=== PATIENT | male | born 1945 | race Caucasian/White ===

== ENCOUNTER 2017-04-19 16:44 | Emergency (ER) | payer MEDICARE, MEDICAID ==
--- NOTE | 2017-04-19 17:25 | ER Document Report ---
ED Medical Screen (RME) - General Chief Complaint: Decreased Appetite Stated Complaint: BLOOD SUGAR ISSUES Time Seen by Provider: 04/19/17 17:22 Mode of Arrival: Ambulatory Information source: Patient TRAVEL OUTSIDE OF THE [place] IN LAST 30 DAYS: No - HPI Patient complains to provider of: depression, elevated FSBS Onset: Other - pt states his blood sugars have been elevated recently but the main reason he's here is that he is very depressed. Feels as if he could hurt himself - Related Data Allergies/Adverse Reactions: No Known Allergies Allergy (Verified 07/19/15 09:40) Past Medical History - Past Medical History Cardiac Medical History: Reports: Hx Hypertension Denies: Hx Heart Attack Pulmonary Medical History: Denies: Hx Asthma Neurological Medical History: Denies: Hx Cerebrovascular Accident, Hx Seizures GI Medical History: Denies: Hx Hepatitis, Hx Hiatal Hernia, Hx Ulcer Infectious Medical History: Denies: Hx Hepatitis Past Surgical History: Denies: Hx Open Heart Surgery, Hx Pacemaker Physical Exam - Vital signs Vitals: Temp Pulse BP Pulse Ox 98.3 F 109 H 143/87 H 95 04/19/17 17:16 04/19/17 17:16 04/19/17 17:16 04/19/17 17:16 Course - Vital Signs Vital signs: Temp Pulse Resp BP Pulse Ox 98.3 F 109 H 143/87 H 95 04/19/17 17:16 04/19/17 17:16 04/19/17 17:16 04/19/17 17:16
[2017-04-19 18:00] LABS: APPEARANCE,URINE CLEAR; BILIRUBIN,URINE NEGATIVE (NEGATIVE); GLUCOSE, URINE NEGATIVE (NEGATIVE); KETONES,URINE TRACE mg/dL (NEGATIVE); LEUKOCYTE ESTERASE,URINE NEGATIVE (NEGATIVE); NITRITE,URINE NEGATIVE (NEGATIVE); PROTEIN,URINE NEGATIVE (NEGATIVE)
[2017-04-19 18:02] LABS: ABSOLUTE EOSINOPHILS # (AUTO) 0.2 10^3/uL (0.0-0.6); ABSOLUTE LYMPHOCYTES (AUTO) 3.3 10^3/uL (0.5-4.7); ABSOLUTE MONOCYTES (AUTO) 0.7 10^3/uL (0.1-1.4); ABSOLUTE NEUT (AUTO) 5.3 10^3/uL (1.7-8.2); BASOPHILS % (AUTO) 0.3 % (0-2); EOSINOPHILS % (AUTO) 2.6 % (0-6); HEMATOCRIT 47.2 % (37.9-51.0); HEMOGLOBIN 16.3 g/dL (13.5-17.0); HGB HCT DIFFERENCE 1.7; LYMPHOCYTES % (AUTO) 34.3 % (13-45); MEAN CORPUSCULAR HEMOGLOBIN 30.1 pg (27.0-33.4); MEAN CORPUSCULAR HGB CONC 34.5 g/dL (32.0-36.0); MEAN CORPUSCULAR VOLUME 87 fl (80-97); MONOCYTES % (AUTO) 7.6 % (3-13); RED BLOOD COUNT 5.41 10^6/uL (4.35-5.55); RED CELL DISTRIBUTION WIDTH 14.7 % (11.5-14.0); SEGMENTED NEUTROPHILS % (AUTO) 55.2 % (42-78); WHITE BLOOD COUNT 9.7 10^3/uL (4.0-10.5)
[2017-04-19 18:04] LABS: WBC,URINE RARE /HPF
[2017-04-19 18:23] LABS: ALANINE AMINOTRANSFERASE 36 U/L (21-72); ALKALINE PHOSPHATASE 68 U/L (38-126); ANION GAP 14 (5-19); ASPARTATE AMINO TRANSFERASE 18 U/L (17-59); BILIRUBIN,DIRECT 0.4 mg/dL (0.0-0.4); BILIRUBIN,TOTAL 0.6 mg/dL (0.2-1.3); BLOOD UREA NITROGEN 20 mg/dL (7-20); CALCIUM 10.5 mg/dL (8.4-10.2); CARBON DIOXIDE 23 mmol/L (22-30); CHLORIDE 103 mmol/L (98-107); CREATININE RESULT 1.04 mg/dL (0.52-1.25); GLUCOSE 112 mg/dL (75-110); POTASSIUM 4.6 mmol/L (3.6-5.0); SODIUM 139.8 mmol/L (137-145); TOTAL PROTEIN 7.8 g/dL (6.3-8.2)
--- NOTE | 2017-04-19 18:24 | ER Document Report ---
ED General - General Chief Complaint: Decreased Appetite Stated Complaint: BLOOD SUGAR ISSUES Time Seen by Provider: 04/19/17 17:22 Mode of Arrival: Ambulatory Information source: Patient Notes: This is a 72-year-old man with a history of diabetes, hypertension, peripheral vascular disease who presents to the emergency room with weakness, irregular sugars, cold sweats and depression. During my interview, I received a phone call with a friend that works with him ( Ed Aries [phone]) who states he has been very depressed and he has expressed the desire to shoot himself. The patient does appear very depressed. He does have access to guns at home. TRAVEL OUTSIDE OF THE [place] IN LAST 30 DAYS: No - HPI Onset: Last week Onset/Duration: Gradual Quality of pain: No pain Severity: None Pain Level: Denies Associated symptoms: denies: Chest pain, Fever, Shortness of breath Exacerbated by: Denies Relieved by: Denies Similar symptoms previously: Yes Recently seen / treated by doctor: No - Related Data Allergies/Adverse Reactions: No Known Allergies Allergy (Verified 04/19/17 17:27) Past Medical History - General Information source: Patient - Social History Smoking Status: Current Some Day Smoker Cigarette use (# per day): Yes - Cigars Chew tobacco use (# tins/day): Yes Frequency of alcohol use: None Drug Abuse: None Lives with: Alone Family History: Other - Twin brother of dementia Patient has suicidal ideation: Yes Patient has homicidal ideation: No - Past Medical History Cardiac Medical History: Reports: Hx Hypertension Denies: Hx Heart Attack Pulmonary Medical History: Denies: Hx Asthma Neurological Medical History: Denies: Hx Cerebrovascular Accident, Hx Seizures Renal/ Medical History: Denies: Hx Peritoneal Dialysis GI Medical History: Denies: Hx Hepatitis, Hx Hiatal Hernia, Hx Ulcer Infectious Medical History: Denies: Hx Hepatitis Past Surgical History: Denies: Hx Open Heart Surgery, Hx Pacemaker Review of Systems - Review of Systems Constitutional: denies: Chills, Fever EENT: No symptoms reported Cardiovascular: No symptoms reported Respiratory: No symptoms reported Gastrointestinal: No symptoms reported Genitourinary: No symptoms reported Male Genitourinary: No symptoms reported Musculoskeletal: No symptoms reported Skin: No symptoms reported Hematologic/Lymphatic: No symptoms reported Neurological/Psychological: See HPI Physical Exam - Vital signs Vitals: Temp Pulse BP Pulse Ox 98.3 F 109 H 143/87 H 95 04/19/17 17:16 04/19/17 17:16 04/19/17 17:16 04/19/17 17:16 Notes: Physical exam: GENERAL: A 2-year-old man, alert and oriented 3, appears weak and depressed HEAD: Atraumatic, normocephalic. EYES: Pupils equal round and reactive to light, extraocular movements intact, sclera anicteric, conjunctiva are normal. ENT: TMs normal, nares patent, oropharynx clear without exudates. Moist mucous membranes. NECK: Normal range of motion, supple without obvious mass or JVD. LUNGS: Breath sounds clear to auscultation bilaterally and equal. No wheezes rales or rhonchi. HEART: Regular rate and rhythm without murmurs, rubs or gallops. ABDOMEN: Soft, normoactive bowel sounds. No tenderness to palpation. No guarding, no rebound. No masses appreciated. EXTREMITIES: Normal range of motion, no pitting or edema. No clubbing or cyanosis. 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 NEUROLOGICAL: Cranial nerves II through XII grossly intact. Normal speech, moving all extremities. PSYCH: Depressed SKIN: Warm, Dry, normal turgor, no rashes or lesions noted. Course - Vital Signs Vital signs: Temp Pulse Resp BP Pulse Ox 98.3 F 77 18 153/65 H 99 04/19/17 17:16 04/19/17 21:55 04/19/17 21:55 04/19/17 21:55 04/19/17 21:55 - Laboratory Result Diagrams: 04/19/17 17:35 04/19/17 17:35 Laboratory results interpreted by me: 04/19/17 04/19/17 04/19/17 17:35 17:35 17:35 RDW 14.7 H Glucose 112 H Calcium 10.5 H Urine Ketones TRACE H Urine Urobilinogen 2.0 H - Diagnostic Test Radiology reviewed: Image reviewed, Reports reviewed - Chest x-ray shows no infiltrates - EKG Interpretation by Me Rate: Normal Rhythm: NSR - EKG shows normal sinus rhythm with a ventricular rate of 81, no acute ST-T wave changes Discharge - Discharge Clinical Impression: Depression, Suicidal ideation Condition: Stable Disposition: PSYCH HOSP/UNIT Referrals: JAIME PITT MD [Primary Care Provider] - Follow up as needed
--- NOTE | 2017-04-19 20:47 | RADIOLOGY REPORT (SQ) ---
EXAM DESCRIPTION: CHEST PA/LAT COMPLETED DATE/TIME: 04/19/2017 8:36 pm REASON FOR STUDY: cough COMPARISON: None. EXAM PARAMETERS: NUMBER OF VIEWS: two views TECHNIQUE: Digital Frontal and Lateral radiographic views of the chest acquired. RADIATION DOSE: NA LIMITATIONS: none FINDINGS: LUNGS AND PLEURA: No consolidation, masses or pneumothorax. No pleural effusion. MEDIASTINUM AND HILAR STRUCTURES: No masses or contour abnormalities. HEART AND VASCULAR STRUCTURES: Heart normal size. No evidence for failure. BONES: No acute findings. HARDWARE: None in the chest. OTHER: No other significant finding. IMPRESSION: No acute findings. RECOMMENDATION: Choose TECHNICAL DOCUMENTATION: JOB ID: [id number] [place]-72 2010 [employer]- All Rights Reserved
--- NOTE | 2017-04-19 21:51 | EKG REPORT ---
SEVERITY:- NORMAL ECG - SINUS RHYTHM : Confirmed by: Prakash Rodriguez MD 19-Apr-2017 21:50:49
[2017-04-19] MEDS ORDERED: ZOLPIDEM TARTRATE 5 MG TABLET PO ONE (22:31)
[2017-04-19] MEDS ORDERED: TRAZODONE HCL 50 MG TABLET PO ONE (23:00)
[2017-04-19] MEDS ORDERED: TRAZODONE HCL 50 MG TABLET PO SCH (23:00)
[2017-04-20] MEDS ORDERED: LORAZEPAM 1 MG TABLET PO ONE (02:26)
[2017-04-20] MEDS ORDERED: LORAZEPAM 1 MG TABLET ONE (02:28)
[2017-04-20] MEDS: AMLODIPINE BESYLATE 2.5 MG TABLET PO SCH (09:31)
[2017-04-20] MEDS: CILOSTAZOL 100 MG TABLET PO SCH ×2 (09:31→17:37)
[2017-04-20] MEDS: CLOPIDOGREL BISULFATE 75 MG TABLET PO SCH (09:31)
--- NOTE | 2017-04-20 10:10 | ER Document Report ---
Doctor's Note Notes: 04/20/17 10:09 72-year-old male with past medical history as recorded who supposedly has been experiencing suicidal ideations of wanting to shoot himself. Labs as recorded. Vital signs are stable. Patient denies any discomfort this morning. We have started the patient on his home medications. We are awaiting psychiatric evaluation.
[2017-04-20] MEDS: DIVALPROEX SODIUM 250 MG TAB.SR.24H PO SCH (17:37)
[2017-04-20] MEDS ORDERED: BUSPIRONE HCL 10 MG TABLET PO SCH (22:00)
[2017-04-20] MEDS ORDERED: LISINOPRIL 10 MG TABLET PO SCH (22:00)
[2017-04-21] MEDS ORDERED: BUSPIRONE HCL 10 MG TABLET PO SCH (08:00)
[2017-04-21] MEDS: AMLODIPINE BESYLATE 2.5 MG TABLET PO SCH (10:01)
[2017-04-21] MEDS: CLOPIDOGREL BISULFATE 75 MG TABLET PO SCH (10:03)
[2017-04-21] MEDS: CILOSTAZOL 100 MG TABLET PO SCH (10:03)
[2017-04-21] MEDS: DIVALPROEX SODIUM 250 MG TAB.SR.24H PO SCH (10:03)
--- NOTE | 2017-04-21 10:21 | ER Document Report ---
Doctor's Note Notes: 04/21/17 10:20 Evaluation of the patient's morning patient states that he is no longer having any thoughts of harming himself. Patient states however he does not feel like he is 100%. Currently waiting for psychiatric evaluation. Otherwise patient has no other complaints vital signs and laboratory studies have been reviewed.
[2017-04-21 13:13] VITALS: BP 121/73
--- NOTE | 2017-04-21 19:57 | PSYCHOLOGICAL NOTE ---
Psych Note - Psych Note Psych Note: Patient is a 72 year old male who presented to the ED last evening via friend for increased depression and SI. Patient stated "I am in a deep depression and can't function." He stated he doesn't know what to do. He stated "when things go wrong it gets worse." When confronted about expressing SI and saying he wanted to shoot self he confirmed he has made the comment. He acknowledged he has a couple guns in the home, stated they are not loaded and there is no ammo in the home. Hew denied previous MH treatment to include outpatient and inpatient. He stated he hasn't used drugs or alcohol "in years." He commented on a Dr. Rodriguez and being prescribed diabetic and HTN medications. He noted a family history of Alzheimer's and dementia. Patient was alert and oriented. Mood was labile (depressed and irritable) with flat affect during depressed mood. He endorsed SI and admitted to having said he wanted to shoot self. He denied HI. He did not appear to be responding to internal stimuli AEB fair eye contact and ability to carry on dialogue conversation. Thought processes were linear. Conversational speech was soft in tone until irritable then tone was loud. Intellectual abilities are estimated to be average. Insight, judgment and impulse control are poor AEB labile mood. Patient's friend/roommate, Natalia ([phone]) was at bedside. She stated patient has "been a mess." She noted his twin brother from Alzheimer 's, his mother from dementia, and his sister has dementia and is in an assisted living facility. She stated all this happened over the past 4 years. She stated he has not been sleeping or eating well. Diagnosis: 311 (F31.9) Unspecified Depressive Disorder Impression/Plan: Recommendation to IVC patient given level of depression, labile mood (depressed, irritable), and SI (passive, does have guns in home but maintains they are not loaded and there is no ammo). Medication regimen to start this evening. Consulted with Dr. Pedro regarding the management and care of patient. ED Physician in agreement with recommendations.
--- NOTE | 2017-04-21 20:09 | PSYCHOLOGICAL NOTE ---
Psych Note - Psych Note Psych Note: Patient is a 72 year old male in the ED on IVC for depression and SI. Today he reported "I am not raging anymore, I feel better, but am a long way from good." He stated he doesn't believe he wanted to kill himself but rather was just "raging." He denied SI/HI. He had a brighter mood and affect. He was not labile AEB no irritability. Thought processes were organized and linear. Insight, judgment and impulse control were fair AEB knowledge of irritability which he referred to as "raging" and the effect it has on his thoughts and feelings. Diagnosis: 311 (F31.9) Unspecified Depressive Disorder Impression/Plan: Patient is psychiatrically cleared. Recommendation to rescind IVC. He does not meet [place] IVC criteria. He denied current SI/HI and stated he was just "raging." There was no observed psychosis. Patient scheduled with outpatient follow up at [facility] on 05/04/2017 at 1200. Patient provided with an outpatient resource list which documented appointment date and time. Friend that picked up up to provide transportation, Torrie, was also made aware of appointment date and time to remind patient. Consulted with Dr. Pedro regarding the management and care of patient. ED Physician in agreement with recommendation.
== END 2017-04-21 13:25 | disposition home or self-care (01) ==
LOC: ER 16:44
DX: F32.9 Major depressive disorder, single episode, unspecified (principal); R45.851 Suicidal ideations; I10 Essential (primary) hypertension; E11.9 Type 2 diabetes mellitus without complications; F17.290 Nicotine dependence, other tobacco product, uncomplicated
CPT/HCPCS: 93005; 99285; 36415; 82962; 84443; 85025; 80053; 81001; 71020; 93010; A9270 ×14; J3490